=== PATIENT | female | born 1965 | race Caucasian/White ===

== ENCOUNTER 2023-01-26 06:16 | Observation (INO) ==
--- NOTE | 2022-12-31 10:21 | PAT Medication Instructions ---
Medication Instructions Date of Service December 31, 2022 Home Medications Medication Instructions Recorded atorvastatin 10 mg tablet 10 mg PO QPM #90 tabs 09/22/22 hydrochlorothiazide 12.5 mg tablet 12.5 mg PO QAM #90 tabs 12/22/22 losartan 100 mg tablet 100 mg PO QAM #90 tabs 12/22/22 ascorbic acid (vitamin C) 1,000 mg tablet 1 g PO QAM rye grass extract 500 mg-quercetin 250 mg tablet 1 tab PO QAM zinc gluconate 100 mg tablet 200 mg PO QAM cholecalciferol (vitamin D3) 125 mcg (5,000 unit) tablet 125 mcg PO QAM mesalamine 1.2 gram tablet,delayed release 2.4 g PO BID atorvastatin 10 mg tablet 10 mg PO QPM hydrochlorothiazide 12.5 mg tablet 12.5 mg PO QAM losartan 100 mg tablet 100 mg PO QAM Flex Dietary Supplement 1 - 2 tab PO BID ASK your prescriber and surgeon mesalamine 1.2 gram tablet,delayed release 2.4 g PO BID STOP taking 2 weeks before surgery (or as soon as possible if surgery is within 2 weeks) rye grass extract 500 mg-quercetin 250 mg tablet 1 tab PO QAM Flex Dietary Supplement 1 - 2 tab PO BID DO NOT take the morning of surgery ascorbic acid (vitamin C) 1,000 mg tablet 1 g PO QAM zinc gluconate 100 mg tablet 200 mg PO QAM cholecalciferol (vitamin D3) 125 mcg (5,000 unit) tablet 125 mcg PO QAM hydrochlorothiazide 12.5 mg tablet 12.5 mg PO QAM losartan 100 mg tablet 100 mg PO QAM Take evening before surgery atorvastatin 10 mg tablet 10 mg PO QPM Other Notes If you have any questions please call us at [phone] or [phone] or [phone] or [phone]
--- NOTE | 2023-01-06 14:22 | Anesthesiology Consultation ---
Date of Service January 06, 2023 Assessment & Plan (1) Encounter for pre-operative examination: - Infectious disease screening: Per assessment on 01/06/23: No known infectious disease contacts or current infectious disease symptoms. No noted Covid positive test result in past 90 days. - Outpatient joint assessment: Pt currently scheduled for inpatient pathway. If surgeon requests review for outpatient joint pathway, patient is not recommended candidate for outpatient joint program from anesthesia standpoint based on available information. Chart Review Chart Review: Acceptable Risk for Surgery and Patient seen in Pre Admission Testing Teaching & Discussion Pre-Anesthesia Teaching/Discussion Notes: Instructed NPO after midnight before surgery,except medications with 15 cc of water. Medication instructions provided according to the PAT guidelines. History Surgery Operation Date: 01/26/23 11:10 Proposed Procedures p Left Total Knee Arthroplasty - Yg Zimmerman DO Height/Weight Height: 5 ft 3 in Weight: 110.5 kg Allergies Allergy/AdvReac Type Severity Reaction Status Date / Time No Known Drug Allergies Allergy Mild Verified 12/30/22 12:24 adhesive tape Allergy Unknown Rash - Verified 12/30/22 12:24 only 1 time occurence Medications Home Medications Medication Instructions Recorded Confirmed Last Taken ascorbic acid (vitamin C) 1,000 mg 1 g PO QAM 01/17/20 12/30/22 07/21/20 09:00 tablet rye grass extract 500 mg-quercetin 1 tab PO QAM 01/17/20 12/30/22 07/21/20 250 mg tablet zinc gluconate 100 mg tablet 200 mg PO QAM 01/17/20 12/30/22 07/21/20 09:00 cholecalciferol (vitamin D3) 125 125 mcg PO QAM 07/18/20 12/30/22 07/21/20 09:00 mcg (5,000 unit) tablet mesalamine 1.2 gram tablet,delayed 2.4 g PO BID 07/23/22 12/30/22 08/03/22 release atorvastatin 10 mg tablet 10 mg PO QPM #90 tabs 09/22/22 12/30/22 Unknown hydrochlorothiazide 12.5 mg tablet 12.5 mg PO QAM #90 tabs 12/22/22 12/30/22 Unknown losartan 100 mg tablet 100 mg PO QAM #90 tabs 12/22/22 12/30/22 Unknown Flex Dietary Supplement 1 - 2 tab PO BID 12/30/22 12/30/22 Unknown Wheeled Walker #1 ea 01/06/23 01/06/23 Unknown Wheeled Walker #1 ea 01/06/23 01/06/23 Unknown Past Medical History Medical History COVID-19 Dx 02/2021--mild symptoms, no symptoms now Morbid obesity with BMI of 40.0-44.9, adult Ulcerative colitis Ulcerative colitis/proctitis Remission Temporomandibular joint disorder + clicking, no locking Adenoma of left breast Hx biopsy, benign, "marker" present Hyperlipidemia Hypertension Exercise / Class Metabolic Activity III < 4 Walking/Shop/Light housework (one FS (no CP, mild SOB)) Past Family History Family History Sister , age 32 Diabetes Breast cancer Sister Depression Lung cancer Lung disease Hypertension Mother Diabetes Depression Hypertension Family history of reaction to anesthesia "did not come out well" (hx nervous breakdown/mental illness) Breast cancer Brother Diabetes has h/o kidney transplant during covid Heart disease Myocardial infarction Hypertension Denies family history of Ovarian cancer Prostate cancer Colorectal cancer Past Surgical History Surgical History Family history of reaction to anesthesia Mom- "did not come out well" (hx nervous breakdown/mental illness) History of colonoscopy H/O breast biopsy S/P endometrial ablation History of tubal ligation Past Anesthesia History No Hx of Anesthesia Complications * Mom- "did not come out well" (hx nervous breakdown/mental illness) History of PONV No Hx of PONV and No Hx of Motion Sickness Social History Smoking Status: Never smoker Do You Dip or Chew Tobacco: No Hx Alcohol Use: Yes ("once a week") Alcohol type: beer and wine alcohol intake frequency: a few times a month Hx Substance Use: No substance use type: does not use Review of Systems Patient denies chest pain, shortness of breath, dyspnea on exertion, fever, chills, cough, wheezing, palpitations. Physical Exam Vital Signs VITALS BP 137/85 P 101 TEMP 98.7 SP02 97%RA RESP 18 PHYSICAL Full cervical extension range of motion. Full TMJ range of motion. TMD 3 finger breaths (difficult to palpate) Mallampati Score 3 Dentition: intact Lungs: clear throughout to auscultation Cardiac: regular rate and rhythm, no murmurs noted Spine: normal Carotid arteries: negative bruit Extremities: no LE edema Thick neck Lab Results Anesthesia Preop Results Results Anesthesia Widget: WBC 6.37 K/ul (4.8-10.8) 01/06/23 Hgb 14.4 g/dl (12.0-16.0) 01/06/23 Hct 42.8 % (37.0-47.0) 01/06/23 Plt 221 K/uL (130-400) 01/06/23 Na 140 mmol/L (136-145) 01/06/23 K 3.7 mmol/L (3.5-5.1) 01/06/23 Cl 105 mmol/L (98-107) 01/06/23 CO2 27 mmol/L (21-32) 01/06/23 BUN 13 mg/dl (6-23) 01/06/23 Creat 0.76 mg/dl (0.6-1.2) 01/06/23 Glucose Level 100 mg/dl (70-99(Fasting)) H 01/06/23 PT 11.1 Seconds (9.0-12.0) 01/06/23 PTT 25.1 Seconds (21.0-31.0) 01/06/23 INR 1.0 (0.9-1.1) 01/06/23 Blood Type A Positive 01/06/23 Antibody Screen NEGATIVE 01/06/23 Testing Electrocardiogram Date: 01/06/23 ST at 101bpm. "Otherwise normal ECG" Chest X-Ray Date: 01/06/23 FINDINGS: PA and lateral chest radiographs are obtained. No prior studies are available for comparison at the time of dictation. The cardiomediastinal silhouette is unremarkable. The lungs and pleural spaces are clear. There is no pneumothorax. The bony thorax appears intact. IMPRESSION: No active disease in the chest.
[~2023-01-26 06:16] MED LIST: ACETAMINOPHEN 500 MG TAB PO SCH; FAMOTIDINE 20 MG TAB PO SCH; GABAPENTIN 600 MG DOSE PO SCH; LR 500ML BOLUS, THEN 15ML/HR IV SCH; LR 60ML/HR IV SCH; ORTHO JOINT MIX INFIL SCH; TRANEXAMIC ACID 1,000 MG **IV Intra-op IV SCH; TRANEXAMIC ACID 1,000 MG **IV Pre-op IV SCH; ceFAZolin 2000MG 2,000 MG/15 ML SYR IV SCH; dexAMETHasone 4 MG TAB PO SCH
[2023-01-26] MEDS ORDERED: BUPIVACAINE 0.5 % 5 MG/1 ML PF 10ML VIAL ONE (06:24)
[2023-01-26] MEDS ORDERED: BUPIVACAINE 0.25% PF 30 ML VIAL ONE (06:24)
--- NOTE | 2023-01-26 06:35 | History & Physical Bridge Note ---
Date of Service January 26, 2023 History & Physical Bridge Note I have examined the patient, reviewed the History & Physical and in the interval since the performance of the History & Physical I have noted the following changes of clinical significance: no changes noted
[2023-01-26] MEDS ORDERED: MIDAZOLAM HCL 1 MG/ML 2ML VIAL ONE (06:54)
[2023-01-26] MEDS ORDERED: PROPOFOL IV EMULSION 10 MG/ML 20 ML VIAL IV ONE ×2 (06:57→08:47)
[2023-01-26] MEDS ORDERED: LIDOCAINE 2% 2 ML VIAL/AMP(20MG/ML) INFIL ONE (06:57)
[2023-01-26] MEDS ORDERED: GLYCOPYRROLATE 0.2 MG/ML VIAL ONE (06:57)
[2023-01-26] MEDS ORDERED: ONDANSETRON INJ 2 MG/ML 2 ML VIAL ONE (06:57)
[2023-01-26] MEDS ORDERED: ORTHO JOINT ANESTHETIC ONE (07:00)
[2023-01-26] MEDS ORDERED: fentaNYL citrate PF 100 MCG/2 ML VIAL IV PRN (07:59)
[2023-01-26] MEDS ORDERED: ATROPINE SULFATE 0.1 MG/ML 10ML SYR IV PRN (07:59)
[2023-01-26] MEDS ORDERED: ONDANSETRON INJ 2 MG/ML 2 ML VIAL IV PRN ×2 (07:59→11:40)
[2023-01-26] MEDS ORDERED: ePHEDrine sulfate 50 MG/ML AMP IV PRN (07:59)
[2023-01-26] MEDS ORDERED: KETOROLAC 30 MG/ML VIAL ONE (08:07)
[2023-01-26] MEDS ORDERED: PHENYLEPHRINE HCL 10 MG/ML VIAL ONE (08:15)
--- NOTE | 2023-01-26 10:05 | Anesthesiology Progress Note ---
Date of Service January 26, 2023 Anesthesia Post Procedure Vital Signs Vital Signs: Temp Pulse Pulse Resp BP Pulse Ox O2 Del Method 01/26/23 10:00 74 16 142/80 H 98 Room Air 01/26/23 09:50 85 18 139/86 97 Oxymask 01/26/23 09:42 36.3 C L 93 H 12 134/70 97 Oxymask 01/26/23 06:41 37.0 C 102 H 18 140/90 96 Room Air O2 Flow Rate 01/26/23 10:00 01/26/23 09:50 3 01/26/23 09:42 6 01/26/23 06:41 Transfer of Care Handoff Completed per policy Notes Mental Status: alert / awake / arousable Patient Amnestic to Procedure: Yes Nausea / Vomiting: adequately controlled Pain: adequately controlled Airway Patency, RR, SpO2: stable & adequate BP & HR: stable & adequate Hydration State: stable & adequate Neuraxial Anesthesia: was administered and sensory block is resolving Anesthetic Complications: no major complications apparent and Pt Satisfied with anesthetic care
--- NOTE | 2023-01-26 10:08 | Operative Report ---
PG Post Operative Report Pre & Post Diagnosis Operation Date: 01/26/23 08:00 Pre-Op Diagnosis: left knee degenerative joint disease Post-Op Diagnosis: left knee degenerative joint disease I identified the patient and participated in the time-out.: Yes Procedure Operation Date: 01/26/23 08:00 Actual Procedures p Left Total Knee Arthroplasty(Left) - Yg Zimmerman DO Surgeon Yg Zimmerman DO [employer] Ag Horta PA-C Estimated Blood Loss 30 Findings Consistent with Post-Op Diagnosis Specimens Left femoral tibial bone Description of Procedure Implants used: I used a Bird Person[employer] total knee arthroplasty system with a size 7 standard PS femur, D tibia, 31 oval patella, and a size 12 CPS polyethylene bearing. All components were cemented in place with Biomet cement. Светлана arrived [facility] for the above procedure. She was seen in the preoperative holding area and the operative extremity was identified and signed. She was given a preoperative antibiotic, TXA, a spinal anesthetic and an adductor nerve block. She was taken back to the operating room and laid on the table in supine position. She was given basic sedation. The operative knee was then prepped and draped in sterile fashion. A timeout was done, and the patient and the operative extremity was properly identified. A midline incision was made directly over the patella. Dissection was taken down to the extensor mechanism. A midvastus arthrotomy was used. The medial retinaculum was released and the fat pad was mostly excised. The knee was flexed and the ACL, PCL, and meniscus were removed. A drill was sent down the center of the femoral canal followed by an intramedullary matthew. Off that matthew a distal femoral cutting block was placed. 9 mm was resected off the distal femur at 5 of valgus. A posterior referencing AP sizing guide was then placed on the distal femur. The femur measured to be a size 7. 2 drill holes were placed in 3 of external rotation. A 4-in-1 cutting block was then impacted into place. Anterior, posterior, and chamfer cuts were then made. The proximal tibia was then exposed. An external tibial alignment guide was placed. A tibial cut guide was then anchored in place and the proximal tibia was then resected. The posterior aspect of the knee was then opened up and any additional meniscus fragments and osteophytes were removed. The tibia measured to be a size D. The tibial plate was then placed in the appropriate rotation and the tibia was drilled and punched. Trial components were then placed. I used a size 12 CPS polyethylene insert. The knee was brought through a full range of motion and felt to be stable. The peg holes for the femoral component were then drilled. The patella was then everted and 9 mm was resected off the posterior aspect of the patella. The patella measured to be a size 31 oval. 3 peg holes were then drilled. A trial patella was placed. The knee was once again brought through a full range of motion and felt to be stable. Trial components were then removed. The surrounding soft tissues were injected with 100 cc of an orthopedic pain control cocktail. All components were then cemented into place with Biomet cement. The final polyethylene insert was then snapped into place. Once cement was dry the tourniquet was deflated. Hemostasis was obtained. A dilute betadyne lavage was then done for 3 minutes. The joint was then irrigated with normal saline solution. The midvastus arthrotomy was then closed with #1 Vicryl suture. The skin was closed with 2-0 Vicryl, 3-0V lock suture, and bree. A soft compressive dressing was placed. She was then transferred to a hospital bed and taken to the postanesthesia care unit in stable condition. She tolerated the procedure well. Ag Horta PA-C, was present for the entire procedure. He was critical for patient positioning, prepping, draping, retraction exposure, wound closure and application of sterile dressing. I attest to the content of the Intraoperative Record and any orders documented therein. Any exceptions are noted below.
--- NOTE | 2023-01-26 10:58 | XRay Report ---
XR knee LT 1 or 2V routine CLINICAL HISTORY: Postoperative evaluation. COMPARISON: Left knee radiographs July 29, 2022. FINDINGS: Alignment of the total left knee arthroplasty is anatomic. There is no periprosthetic frac ture or unexpected radiopaque foreign body. There are skin bree. IMPRESSION: Expected findings following total left knee arthroplasty. ACT 112: Negative or not required by law. Electronically signed by: Mauro Vázquez M.D. 01/26/2023 10:57 AM
[2023-01-26] MEDS ORDERED: MAGNESIUM HYDROXIDE SUSP 30 ML UDC PO PRN (11:40)
[2023-01-26] MEDS ORDERED: HYDROmorphone INJ 0.5 MG/0.5 ML SYR IV PRN (11:40)
[2023-01-26] MEDS ORDERED: bisacodyL 10 MG SUPP PR PRN (11:40)
[2023-01-26] MEDS ORDERED: NALOXONE HCL 0.4 MG/1 ML VIAL/CARP IV PRN (11:40)
[2023-01-26] MEDS ORDERED: METOCLOPRAMIDE HCL INJ 5 MG/ML 2 ML VIAL IV PRN (11:40)
[2023-01-26] MEDS ORDERED: traMADol HCL 50 MG TABLET PO PRN (11:40)
[2023-01-26] MEDS: SODIUM CHLORIDE 0.9% 1,000 ML IV SCH (12:05)
[2023-01-26] MEDS: KETOROLAC TROMETHAMINE 15 MG/ML VIAL IV SCH ×3 (12:05→23:39)
[2023-01-26] MEDS: [UNRECOGNIZED DRUG - OTHER] SCH ×2 (12:16→16:00)
[2023-01-26] MEDS: ACETAMINOPHEN 500 MG TAB PO SCH ×2 (14:15→23:39)
[2023-01-26] MEDS: oxyCODONE HCL IR 5 MG TAB (IMMEDIATE RELEASE) PO PRN ×2 (16:04→20:55)
[2023-01-26] MEDS: ceFAZolin 2000MG 2,000 MG/15 ML SYR IV SCH ×2 (16:04→23:39)
[2023-01-26] MEDS: DOCUSATE SODIUM 100 MG CAP PO SCH (20:54)
[2023-01-26] MEDS: ASPIRIN 81 MG ECTAB PO SCH (20:54)
[2023-01-26] MEDS ORDERED: SENNA 8.6 MG TAB PO SCH (21:00)
[2023-01-26] MEDS ORDERED: ATORVASTATIN 10 MG TAB PO SCH (21:00)
[2023-01-27] MEDS: [UNRECOGNIZED DRUG - OTHER] SCH ×2 (00:13→08:22)
[2023-01-27] MEDS: SODIUM CHLORIDE 0.9% 1,000 ML IV SCH (00:13)
[2023-01-27] MEDS: oxyCODONE HCL IR 5 MG TAB (IMMEDIATE RELEASE) PO PRN (05:35)
[2023-01-27] MEDS: ACETAMINOPHEN 500 MG TAB PO SCH (05:36)
[2023-01-27] MEDS: KETOROLAC TROMETHAMINE 15 MG/ML VIAL IV SCH (05:36)
[2023-01-27] MEDS ORDERED: dexAMETHasone 4 MG TAB PO SCH (08:00)
[2023-01-27] MEDS: ASPIRIN 81 MG ECTAB PO SCH (08:20)
[2023-01-27] MEDS: DOCUSATE SODIUM 100 MG CAP PO SCH (08:21)
[2023-01-27] MEDS ORDERED: hydroCHLOROthiazide 25 MG TAB PO SCH (09:00)
[2023-01-27] MEDS ORDERED: LOSARTAN POTASSIUM 50 MG TAB PO SCH (09:00)
[2023-01-27] MEDS ORDERED: MULTIVITAMIN TAB PO SCH (09:00)
--- NOTE | 2023-01-27 09:24 | Orthopedic Progress Note ---
Date of Service January 27, 2023 Assessment & Plan (1) Status post left knee replacement: Overall she is doing quite well today with good pain control to the left knee. She will work with physical therapy today to work on ambulation and range of motion exercises to the left knee. She was started on aspirin for DVT prophylaxis. She will be discharged home later today. She will follow-up with orthopedics in 2 weeks for postoperative care. Arielle Sotomayor was seen and evaluated at bedside today resting comfortably in no apparent distress. Her pain is well-controlled to the left knee. She has been up and ambulating to the bathroom. She denies any other concerns. Review of Systems All systems reviewed & are unremarkable except as noted in HPI & below. Physical Exam . On physical examination of the left knee, dressings are in place, clean, dry. Her leg is out in full extension. Active plantarflexion dorsiflexion to the left ankle. +2 DP and PT pulses. Less than 2-second capillary refill. Normal sensation. Neurovascular intact. Results & Data Results & Data Laboratory Results . Diagnostic Findings . Postoperative x-rays of the left knee show prosthesis to be in anatomical alig nment with no signs of fracture complication or loosening. PG Care Time/CCT Total # of Minutes Spent Total Time Spent with Patient: Total time spent is greater than 50% in coordination of care (as documented) at patient's floor/unit and/or counseling patient: Coding Level of Care Code 25912 Post Operative Follow-Up Diagnoses Status post left knee replacement Z96.652
--- NOTE | 2023-01-27 09:26 | Discharge Summary ---
Date of Service January 27, 2023 Principal Diagnosis Same as "Discharge Diagnosis" noted below under Discharge Instructions. Discharge Exam . On physical examination of the left knee, dressings are in place, clean, dry. Her leg is out in full extension. Active plantarflexion dorsiflexion to the left ankle. +2 DP and PT pulses. Less than 2-second capillary refill. Normal sensation. Neurovascular intact. Discharge Data Procedures Performed Operation Date: 01/26/23 08:00 Actual Procedures p Left Total Knee Arthroplasty(Left) - Yg Zimmerman DO Ordered Studies 01/26/23 05:00 US - OR guided needle placemen Routine Hospital Course (1) Status post left knee replacement: On January 26, 2023 Светлана arrived at [facility] and underwent a left total knee replacement with no complications. She had a spinal anesthetic. Postoperatively, she was started on aspirin for DVT prophylaxis and transferred to the general orthopedic floor in stable condition. Her hospital course was uneventful. On postoperative day #1, her vital signs are stable and her pain was well-controlled. She participated well with physical therapy work on ambulation and range of motion exercises. She was discharged home in stable condition. She is to follow-up with orthopedics in 2 weeks for postoperative care. PG Care Time/CCT Total # of Minutes Spent Total Time Spent with Patient: Total time spent is greater than 50% in coordination of care (as documented) at patient's floor/unit and/or counseling patient: Discharge Plan Discharge Items Patient Disposition: Home - Self-Care Reason For Visit: Left Knee Degenerative Joint Disease Discharge Diagnosis: Left knee replacement Activity: Per Instructions section Non-emergency contact: Surgeon Call non-emergency contact if: your wound has increased redness and your wound has increased drainage Follow-up/Referrals: Austyn Tafoya CRNP [Primary Care Provider] - Diet: Regular Addtl Attending Provider Instructions: Activity and Therapy Recommendations: * If you are using [facility] then therapy will be provided at your home until they feel you have accomplished all of your goals. * If you are using [facility] then Physical Therapy will be provided until they feel you are ready to start Outpatient Physical Therapy. * If you are not using home therapy then Outpatient Physical Therapy should start about 3-5 days from your day of surgery. Therapy will last about 6-10 weeks * It is important not to put a pillow under your knee when you are relaxing or sleeping. It is just as important to make sure you are getting your knee perfectly straight as it is to regain your knee bend. * You were shown a series of exercises in the hospital. Do these exercises three times each day including the exercises you were shown in physical therapy. * Get up and walk several times each day. For the first four weeks, try not to stand or walk for more than one hour at a time. If you do stand or walk for more than one hour, you will not hurt anything, but your leg will likely swell. * As you feel comfortable, you may change from the walker or crutches to a cane and then to independent walking. Medications: * Narcotic You will likely be sent home from the hospital with a prescription for the narcotic pain medication that worked best throughout your stay. * Cefadroxil -take the antibiotic twice a day for 10 days to help prevent infection. * Aspirin Most patients will be required to take Aspirin 81mg twice a day for 6 weeks after surgery. This is obtained [id number] and a prescription is not necessary. * Other medications may be prescribed for specific circumstances. If you have any questions, please call the office at . * Resume previous home medications unless otherwise instructed TEDs/Elastic Stockings: The white elastic stockings help limit swelling and prevent blood clots from forming in your legs.~ The more you wear them, the more they work. Wear them for six weeks. Dressing Care: The dressing can be changed after physical therapy on postop day #1. Daily dry dressing changes for a few days, especially if the incision is still draining some. If the incision is not draining then you may leave the bree open to air. If there is a little bit of drainage or if the bree are getting stuck on your clothing then cover the incision with a dry dressing. The bree will be removed at your 2 week follow-up appointment. Showering: You may shower 5 days from the day of surgery as long as the incision is no longer draining. You may shower with the bree exposed. Let soapy water run over the bree and pat them dry. Do not scrub or soak the incision. Things To Watch For: * Drainage from the incision site that occurs more than one week after your surgery. * Increased redness at the incision site. * Fever above 102 degrees Fahrenheit. * Unusual chest pain or shortness of breath. * Call [facility] at with any of the above problems Follow-Up Visit: Follow-up with Dr. Zimmerman's PA (Yg Allen) 2-3 weeks after your day of surgery. He will remove your bree and answer any questions. If you have any additional questions or concerns, Dr Zimmerman is usually in the office at the same time and will be available An appointment was probably scheduled when you signed-up for surgery in the office. If you have any questions call Office Instructions: More detailed instructions as well as Frequently Asked Questions were provided in a folder by our office when you signed-up for surgery. Please review these instructions when you get home. If you have any further questions or concerns, please feel free to call the office at [phone] Pending Studies at Discharge: No Stand-Alone Forms: My [facility], Smoking Cessation Medications and DC Order Prescriptions: New aspirin 81 mg Tablet,Delayed Release (Dr/Ec) 81 mg PO BID 42 Days Qty: 84 0RF oxycodone 5 mg Tablet 5 - 10 mg PO Q6 PRN (Reason: pain) Qty: 30 0RF cefadroxil 500 mg capsule 500 mg PO BID 10 Days Qty: 20 0RF Continued atorvastatin 10 mg tablet 10 mg PO QPM Qty: 90 2RF losartan 100 mg tablet 100 mg PO QAM Qty: 90 2RF Patient Comments: TAKES IN AM hydrochlorothiazide 12.5 mg tablet 12.5 mg PO QAM Qty: 90 1RF ascorbic acid (vitamin C) 1,000 mg tablet 1 g PO QAM zinc gluconate 100 mg tablet 200 mg PO QAM rye grass extract-quercetin 500-250 mg tablet 1 tab PO QAM (DME) Jamie Walker Misc See Rx Instructions .MEDSUPPLY Qty: 1 0RF Rx Instructions: As directed (DME) Jamie Walker Misc See Rx Instructions .MEDSUPPLY Qty: 1 0RF Rx Instructions: As directed cholecalciferol (vitamin D3) 125 mcg (5,000 unit) Tablet 125 mcg PO QAM Flex Dietary Supplement 1 - 2 tab PO BID Patient Comments: 2 in the morning and 1 in evening for inflammation. mesalamine [Lialda] 1.2 gram tablet,delayed release (DR/EC) 2.4 g PO BID Rx Instructions: TAKE 4 TABLETS BY MOUTH DAILY Discharge Orders: Discharge Order (Routine); Ordered 01/27/23 Ordered By: Jack Horta Admission Data Admit Date/Time: 01/26/23 09:49 Attending Provider: Yg Zimmerman Admit Provider: Yg Zimmerman Primary Care Provider: Austyn Tafoya
== END 2023-01-27 12:21 | disposition home or self-care (01) ==
LOC: 3E 06:16 → ASU 06:16

== ENCOUNTER 2023-05-04 08:35 | Observation (INO) ==
--- NOTE | 2023-04-21 15:48 | Anesthesiology Consultation ---
Date of Service April 21, 2023 Assessment & Plan (1) Encounter for pre-operative examination: - Outpatient joint assessment: Patient is currently scheduled for inpatient pathway. If re-evaluated and patient/surgeon requests outpatient pathway, patient is not recommended candidate for outpatient joint program from anesthesia standpoint. Chart Review Chart Review: Acceptable Risk for Surgery and Patient NOT seen in Pre Admission Testing History Surgery Operation Date: 05/04/23 10:20 Proposed Procedures p Right Total Knee Arthroplasty - Yg Zimmerman DO Height/Weight Height: 5 ft 3 in Weight: 107.501 kg Allergies Allergy/AdvReac Type Severity Reaction Status Date / Time No Known Drug Allergies Allergy Mild Verified 04/20/23 16:43 adhesive tape Allergy Unknown Rash - Verified 04/20/23 16:43 only 1 time occurence Medications Home Medications Medication Instructions Recorded Confirmed Last Taken ascorbic acid (vitamin C) 1,000 mg 1 g PO QAM 01/17/20 04/20/23 01/12/23 tablet rye grass extract 500 mg-quercetin 1 tab PO QAM 01/17/20 04/20/23 01/12/23 250 mg tablet zinc gluconate 100 mg tablet 200 mg PO QAM 01/17/20 04/20/23 01/12/23 cholecalciferol (vitamin D3) 125 125 mcg PO QAM 07/18/20 04/20/23 01/12/23 mcg (5,000 unit) tablet mesalamine 1.2 gram tablet,delayed 2.4 g PO BID 07/23/22 04/20/23 01/25/23 17:00 release (Lialda) atorvastatin 10 mg tablet 10 mg PO QPM #90 tabs 09/22/22 04/20/23 01/25/23 17:00 hydrochlorothiazide 12.5 mg tablet 12.5 mg PO QAM #90 tabs 12/22/22 04/20/23 01/25/23 07:30 losartan 100 mg tablet 100 mg PO QAM #90 tabs 12/22/22 04/20/23 01/25/23 07:30 Wheeled Walker #1 ea 01/06/23 04/20/23 Unknown Wheeled Walker #1 ea 01/06/23 04/20/23 Unknown oxycodone 5 mg tablet 5 mg PO Q6H PRN pain #30 tabs 02/05/23 04/20/23 Unknown Past Medical History Medical History Adenoma of left breast Hx biopsy, benign, "marker" present COVID-19 Dx 02/2021--mild symptoms, no symptoms now Hyperlipidemia Hypertension Morbid obesity with BMI of 40.0-44.9, adult Temporomandibular joint disorder + clicking, no locking Ulcerative colitis Ulcerative colitis/proctitis Remission Past Family History Family History Sister , age 32 Diabetes Breast cancer Sister Depression Lung cancer Lung disease Hypertension Mother Diabetes Depression Hypertension Family history of reaction to anesthesia "did not come out well" (hx nervous breakdown/mental illness) Breast cancer Brother Diabetes has h/o kidney transplant during covid Heart disease Myocardial infarction Hypertension Denies family history of Ovarian cancer Prostate cancer Colorectal cancer Past Surgical History Surgical History Family history of reaction to anesthesia Mom- "did not come out well" (hx nervous breakdown/mental illness) H/O breast biopsy History of colonoscopy History of left knee replacement History of tubal ligation S/P endometrial ablation Social History Smoking Status: Never smoker Do You Dip or Chew Tobacco: No Hx Alcohol Use: Yes ("once a week") Alcohol type: beer and wine alcohol intake frequency: a few times a month Hx Substance Use: No substance use type: does not use Lab Results Anesthesia Preop Results Results Anesthesia Widget: WBC 5.61 K/ul (4.8-10.8) 03/24/23 Hgb 14.9 g/dl (12.0-16.0) 03/24/23 Hct 44.9 % (37.0-47.0) 03/24/23 Plt 248 K/uL (130-400) 03/24/23 Na 138 mmol/L (136-145) 03/24/23 K 3.5 mmol/L (3.5-5.1) 03/24/23 Cl 102 mmol/L (98-107) 03/24/23 CO2 28 mmol/L (21-32) 03/24/23 BUN 14 mg/dl (6-23) 03/24/23 Creat 0.66 mg/dl (0.6-1.2) 03/24/23 Glucose Level 101 mg/dl (70-99(Fasting)) H 03/24/23 PT 10.9 Seconds (9.0-12.0) 03/24/23 PTT 25 Seconds (21-31) 03/24/23 INR 1.0 (0.9-1.1) 03/24/23 Blood Type A Positive 03/24/23 Antibody Screen NEGATIVE 03/24/23 Testing Electrocardiogram Date: 01/06/23 Sinus tachycardia, rate 101 bpm Chest X-Ray Date: 01/06/23 No active disease in the chest.
--- NOTE | 2023-04-28 07:37 | History & Physical Report ---
Date of Service April 28, 2023 Assessment & Plan (1) Status post left knee replacement: We will proceed with a right total knee arthroplasty. Postoperatively she will be started on aspirin for DVT prophylaxis and kept overnight in the hospital for postop medical management. She plans to use energy physical therapy upon discharge. History of Present Illness Chief Complaint: Osteoarthritis of the right knee. Primary Care Provider: UNIQUE Mcmanus Светлана is a pleasant 57-year-old female who I did a left knee replacement on in January 2023. She did very well with that. Unfortunately she is dealing with a lot of right knee pain. X-rays and clinical examination have been diagnostic for advanced osteoarthritis of the right knee. After failed conservative treatment, she has elected to proceed with a right total knee arthroplasty.. Allergies Allergy/AdvReac Type Severity Reaction Status Date / Time No Known Drug Allergies Allergy Mild Verified 04/20/23 16:43 adhesive tape Allergy Unknown Rash - Verified 04/20/23 16:43 only 1 time occurence Home Medications Medication Instructions Recorded Confirmed Type ascorbic acid (vitamin C) 1,000 mg 1 g PO QAM 01/17/20 04/20/23 History tablet rye grass extract 500 mg-quercetin 1 tab PO QAM 01/17/20 04/20/23 History 250 mg tablet zinc gluconate 100 mg tablet 200 mg PO QAM 01/17/20 04/20/23 History cholecalciferol (vitamin D3) 125 125 mcg PO QAM 07/18/20 04/20/23 History mcg (5,000 unit) tablet mesalamine 1.2 gram tablet,delayed 2.4 g PO BID 07/23/22 04/20/23 History release (Lialda) atorvastatin 10 mg tablet 10 mg PO QPM #90 tabs 09/22/22 04/20/23 Rx hydrochlorothiazide 12.5 mg tablet 12.5 mg PO QAM #90 tabs 12/22/22 04/20/23 Rx losartan 100 mg tablet 100 mg PO QAM #90 tabs 12/22/22 04/20/23 Rx Wheeled Walker #1 ea 01/06/23 04/20/23 Rx Wheeled Walker #1 ea 01/06/23 04/20/23 Rx oxycodone 5 mg tablet 5 mg PO Q6H PRN pain #30 tabs 02/05/23 04/20/23 Rx Past Med/Surg History Medical History COVID-19 Dx 02/2021--mild symptoms, no symptoms now Morbid obesity with BMI of 40.0-44.9, adult Ulcerative colitis Ulcerative colitis/proctitis Remission Temporomandibular joint disorder + clicking, no locking Adenoma of left breast Hx biopsy, benign, "marker" present Hyperlipidemia Hypertension Surgical History History of left knee replacement Family history of reaction to anesthesia Mom- "did not come out well" (hx nervous breakdown/mental illness) History of colonoscopy H/O breast biopsy S/P endometrial ablation History of tubal ligation Family History Sister , age 32 Diabetes Breast cancer Sister Depression Lung cancer Lung disease Hypertension Mother Diabetes Depression Hypertension Family history of reaction to anesthesia "did not come out well" (hx nervous breakdown/mental illness) Breast cancer Brother Diabetes has h/o kidney transplant during covid Heart disease Myocardial infarction Hypertension Denies family history of Ovarian cancer Prostate cancer Colorectal cancer Social History Smoking Status: Never smoker Second Hand Exposure: No; Do You Dip or Chew Tobacco: No; Hx Alcohol Use: Yes ("once a week") Alcohol type: beer and wine Alcohol Intake Frequency: Monthly or Less Hx Substance Use: No Preferred Language: Albanian Communication Ability: Effective Visual Impairment: No Limitations Hearing Ability: Normal Direct Response Consultant Required: No Beliefs That Will Affect Care: None marital status: / Current Living Situation: Other Current Living Situation Comment: alicia current occupational status: employed current occupation: In [employer]. How many Children do You have: 3 Feels Safe at Home: Yes Childhood Exposure to Second-Hand Smoke: Yes Diet: regular Diet Comment: regular caffeine: Yes (Coffee x 1 cup per day) during the past year weight has: increased > 10 lbs Dental Care, Regularly: No Physical Activity Frequency: 3-4 Times per Week Seatbelt Use: always Sunscreen Use: Yes Assistive Devices: Glasses Review of Systems All systems reviewed & are unremarkable except as noted in HPI & below. Physical Exam On physical examination of the right knee, she does have a varus deformity. She has tenderness palpation of the distal medial femoral condyle and over the medial joint line.. Constitutional WD/WN, vitals as above Eyes PERRL, conjunctivae normal, anicteric sclerae ENMT external ear and nose normal, oropharynx normal Neck trachea midline, no thyromegaly Respiratory normal respiratory effort Cardiovascular RRR, no murmur, no edema Gastrointestinal (Abdomen) normal bowel sounds, soft, nontender, no hepatosplenomegaly Psychiatric A+Ox3, euthymic affect Results & Data Results & Data Laboratory Results . Diagnostic Findings X-rays of the right knee show advanced osteoarthritis with joint space narrowing, osteophyte formation, and [id number] articulation. PG Care Time/CCT Total # of Minutes Spent Total Time Spent with Patient: Total time spent is greater than 50% in coordination of care (as documented) at patient's floor/unit and/or counseling patient: Coding Level of Care Code None Diagnoses Status post left knee replacement Z96.652
--- NOTE | 2023-05-04 08:34 | History & Physical Bridge Note ---
Date of Service May 04, 2023 History & Physical Bridge Note I have examined the patient, reviewed the History & Physical and in the interval since the performance of the History & Physical I have noted the following changes of clinical significance: no changes noted
[~2023-05-04 08:35] MED LIST changes: -ACETAMINOPHEN 500 MG TAB PO SCH; +BUPIVACAINE 0.5 % 5 MG/1 ML PF 10ML VIAL ONE; -FAMOTIDINE 20 MG TAB PO SCH; -GABAPENTIN 600 MG DOSE PO SCH; -LR 500ML BOLUS, THEN 15ML/HR IV SCH; -LR 60ML/HR IV SCH; -ORTHO JOINT MIX INFIL SCH; +ROPIVACAINE 0.5% 5 MG/ML 30 ML VIAL ONE; -TRANEXAMIC ACID 1,000 MG **IV Intra-op IV SCH; -TRANEXAMIC ACID 1,000 MG **IV Pre-op IV SCH; -ceFAZolin 2000MG 2,000 MG/15 ML SYR IV SCH; -dexAMETHasone 4 MG TAB PO SCH
[2023-05-04] MEDS: GABAPENTIN 300 MG CAP PO SCH (09:03)
[2023-05-04] MEDS: LR 60ML/HR IV SCH (09:04)
[2023-05-04] MEDS: ACETAMINOPHEN 500 MG TAB PO SCH ×2 (09:04→14:10)
[2023-05-04] MEDS: dexAMETHasone**PF** 10 MG/ML VIAL IV SCH (09:04)
[2023-05-04] MEDS: FAMOTIDINE 20 MG TAB PO SCH (09:04)
[2023-05-04] MEDS: LR 500ML BOLUS, THEN 15ML/HR IV SCH (09:04)
[2023-05-04] MEDS ORDERED: DexMEDEtomidine HCL IV 100 MCG/ML VIAL IV ONE (09:07)
[2023-05-04] MEDS ORDERED: MIDAZOLAM HCL 1 MG/ML 2ML VIAL ONE ×2 (09:07→09:55)
[2023-05-04] MEDS: TRANEXAMIC ACID 1,000 MG **IV Pre-op IV SCH (09:23)
[2023-05-04] MEDS ORDERED: ONDANSETRON INJ 2 MG/ML 2 ML VIAL IV PRN ×2 (09:35→12:34)
[2023-05-04] MEDS ORDERED: fentaNYL citrate PF 100 MCG/2 ML VIAL IV PRN (09:35)
[2023-05-04] MEDS ORDERED: ATROPINE SULFATE 0.1 MG/ML 10ML SYR IV PRN (09:35)
[2023-05-04] MEDS ORDERED: ePHEDrine sulfate 50 MG/ML AMP IV PRN (09:35)
[2023-05-04] MEDS: ceFAZolin 2000MG 2,000 MG/15 ML SYR IV SCH ×2 (09:37→17:34)
[2023-05-04] MEDS ORDERED: ONDANSETRON INJ 2 MG/ML 2 ML VIAL ONE (09:57)
[2023-05-04] MEDS ORDERED: PROPOFOL IV EMULSION 10 MG/ML 20 ML VIAL IV ONE ×2 (09:57→10:36)
[2023-05-04] MEDS ORDERED: PHENYLEPHRINE 100MCG/ML 10ML SYR IV ONE (09:57)
[2023-05-04] MEDS: ROPIV 0.5% 246mg, Ketorolac 30mg, EPINEPHrine 0.5mg in NSS INFIL SCH (10:17)
[2023-05-04] MEDS: ORTHO JOINT ANESTHETIC ONE (10:18)
[2023-05-04] MEDS: TRANEXAMIC ACID 1,000 MG **IV Intra-op IV SCH (10:43)
--- NOTE | 2023-05-04 10:54 | Operative Report ---
PG Post Operative Report Pre & Post Diagnosis Operation Date: 05/04/23 10:20 Pre-Op Diagnosis: Right Knee Degenerative Joint Disease Post-Op Diagnosis: Right Knee Degenerative Joint Disease I identified the patient and participated in the time-out.: Yes Procedure Operation Date: 05/04/23 10:20 Actual Procedures p Right Total Knee Arthroplasty(Right) - Yg Zimmerman DO Surgeon Yg Zimmerman DO [employer] Yg Allen PA-C Estimated Blood Loss 30 Findings Consistent with Post-Op Diagnosis Specimens Right femoral and tibial bone Description of Procedure Implants used: I used a [employer] total knee arthroplasty system with a size 6 standard PS femur, D tibia, 31 oval patella, and a size 18 CPS polyethylene bearing. All components were cemented in place with Biomet cement. Светлана [facility] for the above procedure. She was seen in the preoperative holding area and the operative extremity was identified and signed. She was given a preoperative antibiotic, TXA, a spinal anesthetic and an adductor nerve block. She was taken back to the operating room and laid on the table in supine position. She was given basic sedation. The operative knee was then prepped and draped in sterile fashion. A timeout was done, and the patient and the operative extremity was properly identified. A midline incision was made directly over the patella. Dissection was taken down to the extensor mechanism. A midvastus arthrotomy was used. The medial retinaculum was released and the fat pad was mostly excised. The knee was flexed and the ACL, PCL, and meniscus were removed. A drill was sent down the center of the femoral canal followed by an intramedullary matthew. Off that matthew a distal femoral cutting block was placed. 9 mm was resected off the distal femur at 5 of valgus. A posterior referencing AP sizing guide was then placed on the distal femur. The femur measured to be a size 6. 2 drill holes were placed in 3 of external rotation. A 4-in-1 cutting block was then impacted into place. Anterior, posterior, and chamfer cuts were then made. The proximal tibia was then exposed. An external tibial alignment guide was placed. A tibial cut guide was then anchored in place and the proximal tibia was then resected. The posterior aspect of the knee was then opened up and any additional meniscus fragments and osteophytes were removed. The tibia measured to be a size D. The tibial plate was then placed in the appropriate rotation and the tibia was drilled and punched. Trial components were then placed. I used a size 18 CPS polyethylene insert. The knee was brought through a full range of motion and felt to be stable. The peg holes for the femoral component were then drilled. The patella was then everted and 9 mm was resected off the posterior aspect of the patella. The patella measured to be a size 31 oval. 3 peg holes were then drilled. A trial patella was placed. The knee was once again brought through a full range of motion and felt to be stable. Trial components were then removed. The surrounding soft tissues were injected with 100 cc of an orthopedic pain control cocktail. All components were then cemented into place with Biomet cement. The final polyethylene insert was then snapped into place. Once cement was dry the tourniquet was deflated. Hemostasis was obtained. A dilute betadyne lavage was then done for 3 minutes. The joint was then irrigated with normal saline solution. The midvastus arthrotomy was then closed with #1 Vicryl suture. The skin was closed with 2-0 Vicryl, 3-0V lock suture, and bree. A soft compressive dressing was placed. She was then transferred to a hospital bed and taken to the postanesthesia care unit in stable condition. She tolerated the procedure well. Yg Allen PA-C, was present for the entire procedure. He was critical for patient positioning, prepping, draping, retraction exposure, wound closure and application of sterile dressing. I attest to the content of the Intraoperative Record and any orders documented therein. Any exceptions are noted below.
--- NOTE | 2023-05-04 12:06 | XRay Report ---
RIGHT KNEE 2 VIEWS History: Right total knee arthroplasty. Degenerative arthritis. Postop. FINDINGS: The patient is status post a right total knee arthroplasty. The hardware is intact. No frac ture or dislocation. Skin bree are in place. IMPRESSION: Right total knee arthroplasty. No evidence for hardware complication. ACT 112: Negative or not required by law. Electronically signed by: Shyam Hughes M.D. 05/04/2023 12:04 PM
--- NOTE | 2023-05-04 12:27 | Anesthesiology Progress Note ---
Date of Service May 04, 2023 Anesthesia Post Procedure Vital Signs Vital Signs: Temp Pulse Pulse Resp BP Pulse Ox O2 Del Method 05/04/23 11:55 72 15 156/79 H 94 Room Air 05/04/23 11:45 73 14 164/67 H 93 Room Air 05/04/23 11:35 77 13 144/76 H 95 Room Air 05/04/23 11:25 78 17 124/66 93 Room Air 05/04/23 11:15 75 16 106/62 93 Room Air 05/04/23 11:07 97.3 F L 78 23 98/54 L 96 Room Air 05/04/23 09:02 98.8 F 94 H 20 150/104 H 95 Room Air Transfer of Care Handoff Completed per policy Notes Mental Status: alert / awake / arousable and participated in evaluation Patient Amnestic to Procedure: Yes Nausea / Vomiting: adequately controlled Pain: adequately controlled Airway Patency, RR, SpO2: stable & adequate BP & HR: stable & adequate Hydration State: stable & adequate Neuraxial Anesthesia: was administered and sensory block is resolving Anesthetic Complications: no major complications apparent and Pt Satisfied with anesthetic care
[2023-05-04] MEDS ORDERED: HYDROmorphone INJ 0.5 MG/0.5 ML SYR IV PRN (12:34)
[2023-05-04] MEDS ORDERED: NALOXONE HCL 0.4 MG/1 ML VIAL/CARP IV PRN (12:34)
[2023-05-04] MEDS ORDERED: METOCLOPRAMIDE HCL INJ 5 MG/ML 2 ML VIAL IV PRN (12:34)
[2023-05-04] MEDS ORDERED: bisacodyL 10 MG SUPP PR PRN (12:34)
[2023-05-04] MEDS ORDERED: MAGNESIUM HYDROXIDE SUSP 30 ML UDC PO PRN (12:34)
[2023-05-04] MEDS: SODIUM CHLORIDE 0.9% 1,000 ML IV SCH (13:09)
[2023-05-04] MEDS: KETOROLAC 30 MG/ML VIAL IV SCH (13:17)
[2023-05-04] MEDS: DOCUSATE SODIUM 100 MG CAP PO SCH (20:59)
[2023-05-04] MEDS: ASPIRIN 81 MG ECTAB PO SCH (20:59)
[2023-05-04] MEDS: SENNA 8.6 MG TAB PO SCH (21:00)
[2023-05-04] MEDS: ATORVASTATIN 10 MG TAB PO SCH (21:00)
[2023-05-04] MEDS: oxyCODONE HCL IR 5 MG TAB (IMMEDIATE RELEASE) PO PRN (21:02)
[2023-05-05] MEDS: MULTIVITAMIN TAB PO SCH (08:08)
[2023-05-05] MEDS: LOSARTAN POTASSIUM 50 MG TAB PO SCH (08:08)
[2023-05-05] MEDS: hydroCHLOROthiazide 25 MG TAB PO SCH (08:08)
[2023-05-05] MEDS: dexAMETHasone 4 MG TAB PO SCH (08:09)
--- NOTE | 2023-05-05 10:16 | Orthopedic Progress Note ---
Date of Service May 05, 2023 Assessment & Plan (1) Status post right knee replacement: Overall, she is doing quite well today with good pain control to the right knee. She will work with physical therapy later this morning to work on ambulation and range of motion exercises. She is on aspirin for DVT prophylaxis. She can be discharged home later this morning pending physical therapy evaluation. She will follow-up with orthopedics in 2 weeks for postoperative management. Subjective . Светлана was seen and evaluated this morning resting comfortably at bedside in no apparent distress. She notes that her pain is well-controlled to the right knee. She has been up and out of bed with no significant issues. She has yet to work with physical therapy this morning. She denies any other concerns today. Review of Systems All systems reviewed & are unremarkable except as noted in HPI & below. Physical Exam . On physical examination of the right knee, dressings are clean, dry, intact. Her leg is out in full extension. She has active plantarflexion dorsiflexion of the right ankle. +2 DP and PT pulses. Less than 2-second capillary refill. Normal sensation. Neurovascular intact. Results & Data Results & Data Laboratory Results . Diagnostic Findings . Postoperative x-rays of the right knee show prosthesis to be anatomical alignment with no signs of fracture complication or loosening. PG Care Time/CCT Total # of Minutes Spent Total Time Spent with Patient: Total time spent is greater than 50% in coordination of care (as documented) at patient's floor/unit and/or counseling patient: Coding Level of Care Code 56117 Post Operative Follow-Up Diagnoses Status post right knee replacement Z96.651
--- NOTE | 2023-05-05 10:18 | Discharge Summary ---
Date of Service May 05, 2023 Admission HPI (Per Admitting) Светлана is a pleasant 57-year-old female who I did a left knee replacement on in January 2023. She did very well with that. Unfortunately she is dealing with a lot of right knee pain. X-rays and clinical examination have been diagnostic for advanced osteoarthritis of the right knee. After failed conservative treatment, she has elected to proceed with a right total knee arthroplasty.. Admission Exam (Per Admitting) On physical examination of the right knee, she does have a varus deformity. She has tenderness palpation of the distal medial femoral condyle and over the medial joint line.. Principal Diagnosis Same as "Discharge Diagnosis" noted below under Discharge Instructions. Discharge Exam . On physical examination of the right knee, dressings are clean, dry, intact. Her leg is out in full extension. She has active plantarflexion dorsiflexion of the right ankle. +2 DP and PT pulses. Less than 2-second capillary refill. Normal sensation. Neurovascular intact. Discharge Data Procedures Performed Operation Date: 05/04/23 10:20 Actual Procedures p Right Total Knee Arthroplasty(Right) - Yg Zimmerman DO Ordered Studies 05/04/23 05:00 US - OR guided needle placemen Routine Hospital Course (1) Status post right knee replacement: On May 04, 2023 Светлана arrived at [facility] and underwent a right total knee arthroplasty performed by Dr. Zimmerman with no complications. She had a spinal anesthetic. Postoperatively, she was started on aspirin for DVT prophylaxis and transferred to the general orthopedic floor in stable condition. Her hospital course was uneventful. On postoperative day #1, her vital signs are stable and her pain was well-controlled. She participated well with physical therapy working on ambulation and range of motion exercises. She was then discharged home in stable condition. She will follow-up with orthopedics in 2 weeks for postoperative management. PG Care Time/CCT Total # of Minutes Spent Total Time Spent with Patient: Total time spent is greater than 50% in coordination of care (as documented) at patient's floor/unit and/or counseling patient: Discharge Plan Discharge Items Patient Disposition: Home - Home Health Services Reason For Visit: Right Knee Degenerative Joint Disease Discharge Diagnosis: Same Activity: Per Instructions section Non-emergency contact: Surgeon Call non-emergency contact if: your temperature is above 101.5, your wound has increased redness and your wound has increased drainage Follow-up/Referrals: Ausytn Tafoya CRNP [Primary Care Provider] - Diet: Regular Addtl Attending Provider Instructions: Activity and Therapy Recommendations: * If you are using [facility] then therapy will be provided at your home until they feel you have accomplished all of your goals. * If you are using [facility] then Physical Therapy will be provided until they feel you are ready to start Outpatient Physical Therapy. * If you are not using home therapy then Outpatient Physical Therapy should start about 3-5 days from your day of surgery. Therapy will last about 6-10 weeks * It is important not to put a pillow under your knee when you are relaxing or sleeping. It is just as important to make sure you are getting your knee perfectly straight as it is to regain your knee bend. * You were shown a series of exercises in the hospital. Do these exercises three times each day including the exercises you were shown in physical therapy. * Get up and walk several times each day. For the first four weeks, try not to stand or walk for more than one hour at a time. If you do stand or walk for more than one hour, you will not hurt anything, but your leg will likely swell. * As you feel comfortable, you may change from the walker or crutches to a cane and then to independent walking. Medications: * Narcotic You will likely be sent home from the hospital with a prescription for the narcotic pain medication that worked best throughout your stay. * Cefadroxil -take the antibiotic twice a day for 10 days to help prevent infection. * Aspirin Most patients will be required to take Aspirin 81mg twice a day for 6 weeks after surgery. This is obtained [id number] and a prescription is not necessary. * Other medications may be prescribed for specific circumstances. If you have any questions, please call the office at . * Resume previous home medications unless otherwise instructed TEDs/Elastic Stockings: The white elastic stockings help limit swelling and prevent blood clots from forming in your legs.~ The more you wear them, the more they work. Wear them for six weeks. Dressing Care: The dressing can be changed after physical therapy on postop day #1. Daily dry dressing changes for a few days, especially if the incision is still draining some. If the incision is not draining then you may leave the bree open to air. If there is a little bit of drainage or if the bree are getting stuck on your clothing then cover the incision with a dry dressing. The bree will be removed at your 2 week follow-up appointment. Showering: You may shower 5 days from the day of surgery as long as the incision is no longer draining. You may shower with the bree exposed. Let soapy water run over the bree and pat them dry. Do not scrub or soak the incision. Things To Watch For: * Drainage from the incision site that occurs more than one week after your surgery. * Increased redness at the incision site. * Fever above 102 degrees Fahrenheit. * Unusual chest pain or shortness of breath. * Call [facility] at with any of the above problems Follow-Up Visit: Follow-up with Dr. Zimmerman's PA (Yg Allen) 2-3 weeks after your day of surgery. He will remove your bree and answer any questions. If you have any additional questions or concerns, Dr Zimmerman is usually in the office at the same time and will be available An appointment was probably scheduled when you signed-up for surgery in the office. If you have any questions call Office Instructions: More detailed instructions as well as Frequently Asked Questions were provided in a folder by our office when you signed-up for surgery. Please review these instructions when you get home. If you have any further questions or concerns, please feel free to call the office at [phone] Pending Studies at Discharge: No Stand-Alone Forms: My [facility] [employer], Smoking Cessation Medications and DC Order Prescriptions: New aspirin 81 mg Tablet,Delayed Release (Dr/Ec) 81 mg PO BID 42 Days Qty: 84 0RF cefadroxil 500 mg capsule 500 mg PO BID 10 Days Qty: 20 0RF oxycodone 5 mg tablet 5 mg PO Q6H PRN (Reason: pain) Qty: 30 0RF Continued atorvastatin 10 mg tablet 10 mg PO QPM Qty: 90 2RF losartan 100 mg tablet 100 mg PO QAM Qty: 90 2RF Patient Comments: TAKES IN AM hydrochlorothiazide 12.5 mg tablet 12.5 mg PO QAM Qty: 90 1RF ascorbic acid (vitamin C) 1,000 mg tablet 1 g PO QAM zinc gluconate 100 mg tablet 200 mg PO QAM rye grass extract-quercetin 500-250 mg tablet 1 tab PO QAM (DME) Wheeled Walker Misc See Rx Instructions .MEDSUPPLY Qty: 1 0RF Rx Instructions: As directed (DME) Wheeled Walker Misc See Rx Instructions .MEDSUPPLY Qty: 1 0RF Rx Instructions: As directed cholecalciferol (vitamin D3) 125 mcg (5,000 unit) Tablet 125 mcg PO QAM mesalamine [Lialda] 1.2 gram tablet,delayed release (DR/EC) 2.4 g PO BID Rx Instructions: TAKE 4 TABLETS BY MOUTH DAILY Discontinued oxycodone 5 mg tablet 5 mg PO Q6H PRN (Reason: pain) Qty: 30 0RF Admission Data Admit Date/Time: 05/04/23 11:09 Attending Provider: Yg Zimmerman Admit Provider: Yg Zimmerman Primary Care Provider: Austyn Tafoya Other Interventions: Discharge Summary Assessment (RN) Last Done: 05/05/23 08:56
== END 2023-05-05 10:28 | disposition home health service (06) ==
LOC: 3E 08:35 → ASU 08:35